=== PATIENT | female | born 1950 ===

== ENCOUNTER 2021-04-15 06:13 | Inpatient (IN) ==
--- NOTE | 2021-03-06 14:13 | PAT Medication Instructions ---
Medication Instructions Date of Service March 06, 2021 Home Medications Probiotic 10,000 mmu cells PO QAM calcium carbonate-vitamin D3 [Calcium 600 + D(3)] 1 tab PO QAM cetirizine 10 mg PO QAM garlic 1,000 mg PO QAM hydrochlorothiazide 25 mg PO DAILY PRN levothyroxine [Synthroid] 75 mcg PO QAM multivitamin 1 tab PO QAM aspirin [Aspir-81] 81 mg PO 4XWK Continue as directed aspirin [Aspir-81] 81 mg PO 4XWK (OK to take even on day of surgery unless otherwise instructed by surgeon) STOP taking 2 weeks before surgery If surgery is within 2 weeks, stop taking as soon as possible. garlic 1,000 mg PO QAM DO NOT take the morning of surgery Probiotic 10,000 mmu cells PO QAM calcium carbonate-vitamin D3 [Calcium 600 + D(3)] 1 tab PO QAM cetirizine 10 mg PO QAM hydrochlorothiazide 25 mg PO DAILY PRN multivitamin 1 tab PO QAM Take morning of surgery With a small sip of water, OTHERWISE NOTHING TO EAT OR DRINK AFTER MIDNIGHT: levothyroxine [Synthroid] 75 mcg PO QAM Take evening before surgery hydrochlorothiazide 25 mg PO DAILY PRN (if needed) Other Notes If you have any questions please call us at [phone] or [phone] or [phone] or [phone]
--- NOTE | 2021-03-11 13:57 | Anesthesiology Consultation ---
Date of Service March 11, 2021 Assessment & Plan (1) Encounter for pre-operative examination: COVID Status: As of 03/11 assessment, patient denies travel to endemic area, known exposure/sick contacts, or symptoms of COVID19. Patient instructed that they and their household members must follow strict social distancing guidelines, wear a mask in public and avoid travel/events/gatherings for 14 days prior to surgery. Preoperative COVID19 testing to be completed prior to surgery per surgeon's arrangements. Patient made aware to self-isolate as much as possible between COVID testing and surgery. Pt is fully vaccinated. Chart Review Chart Review: Acceptable Risk for Surgery (pending pcp clearance) and Patient seen in Pre Admission Testing Teaching & Discussion Instructed NPO after midnight before surgery, except medications with 15 cc of water. Medication instructions provided according to the PAT guidelines. History Surgery Operation Date: 04/15/21 10:15 Proposed Procedures p Left Total Knee Arthroplasty(Left) - Jw Westbrook DO Height/Weight Height: 5 ft 3 in Weight: 89.3 kg Allergies Allergy/AdvReac Type Severity Reaction Status Date / Time No Known Allergies Allergy Unverified 03/11/21 13:51 Medications Home Medications Medication Instructions Recorded Confirmed Last Taken Probiotic 10,000 mmu cells PO QAM 11/25/20 02/27/21 01/07/21 09:00 calcium carbonate-vitamin D3 1 tab PO QAM 11/25/20 02/27/21 01/07/21 09:00 [Calcium 600 + D(3)] cetirizine 10 mg PO QAM 11/25/20 02/27/21 01/07/21 09:00 garlic 1,000 mg PO QAM 11/25/20 02/27/21 12/23/20 hydrochlorothiazide 25 mg PO DAILY PRN 11/25/20 02/27/21 01/07/21 09:00 levothyroxine [Synthroid] 75 mcg PO QAM 11/25/20 02/27/21 01/08/21 02:15 multivitamin 1 tab PO QAM 11/25/20 02/27/21 01/01/21 aspirin [Aspir-81] 81 mg PO 4XWK 02/27/21 02/27/21 Unknown Past Medical History Medical History History of hepatitis B Hypertension HCTZ PRN (felt stress related) Hypothyroidism Obesity Osteoarthritis Exercise / Class Metabolic Activity II 4-5 Yardwork/Stairs/Walk up hill Past Family History Family History Other No family history of adverse response to anesthesia Past Surgical History Surgical History History of appendectomy History of arthroscopy R/L knees History of carpal tunnel release R/L History of cholecystectomy History of colonoscopy History of dilatation and curettage History of tonsillectomy and adenoidectomy History of total knee replacement RT Hx of blepharoplasty R/L Hx of hand surgery ganglion cyst left hand/5th digit right hand S/P JENN-BSO Past Anesthesia History No Hx of Anesthesia Complications and No Family Hx of Anesthesia Complications History of PONV No Hx of PONV and No Hx of Motion Sickness Social History Smoking Status: Never smoker Do You Dip or Chew Tobacco: No Hx Alcohol Use: Yes Alcohol type: wine and hard liquor alcohol intake frequency: a few times a month Hx Substance Use: No substance use type: does not use Review of Systems Pt denies any recent chest pain, shortness of breath, palpitations, cough, fever, URI, or uncontrolled acid reflux. Physical Exam Vital Signs BP: 128/80 P: 73bpm SPO2: 99% RA T: 98.0 F R: 16 ENMT Mouth: no dental restorations, no chipped teeth and no loose teeth Thyromental Distance: > or= 3.5 Finger Breadths Mallampati Class: II Neck normal visual inspection; neck extension not limited Respiratory normal respiratory effort, lungs clear to auscultation Cardiovascular RRR, no murmur, no edema Testing Laboratory Results 03/11/21 13:33 03/11/21 13:33 PT 9.8 Seconds (9.0-12.0) 03/11/21 13:33 INR 1.0 (0.9-1.1) 03/11/21 13:33 APTT 26.3 Seconds (21.0-31.0) 03/11/21 13:33 Hemoglobin A1c 5.3 % (4.5-5.6) 03/11/21 13:33 Urine Color Yellow 03/11/21 13:33 Urine Appearance Clear (Clear) 03/11/21 13:33 Urine pH 7.0 (4.5-7.5) 03/11/21 13:33 Ur Specific [place] 1.010 (1.000-1.030) 03/11/21 13:33 Urine Protein Negative (Negative) 03/11/21 13:33 Urine Glucose (UA) Negative (Negative) 03/11/21 13:33 Urine Ketones Negative (Negative) 03/11/21 13:33 Urine Nitrite Negative (Negative) 03/11/21 13:33 Ur Leukocyte Esterase Negative (Negative) 03/11/21 13:33 Blood Type O Positive 03/11/21 13:32 Antibody Screen NEGATIVE 03/11/21 13:32 Electrocardiogram Date: 12/13/20 Findings: + NSR @ (69bpm) Chest X-Ray Date: 12/13/20 Findings: + NAD
[2021-03-11 14:55] LABS: Basophils # (auto) 0.05 K/uL (0-0.2); Basophils % (auto) 0.8 %; Eosinophils # (auto) 0.12 K/uL (0-0.5); Eosinophils % (auto) 1.8 %; Hematocrit (blood only) 36.6 % (37-47); Hemoglobin 12.3 g/dL (12.0-16.0); Immature Granulocytes # (auto) 0.01 K/uL (0.00-0.02); Immature Granulocytes % (auto) 0.2 %; Lymphocytes # (auto) 2.92 K/uL (1.2-3.4); Lymphocytes % (auto) 44.6 %; Mean Corpuscular Hemoglobin 29.6 pg (25-34); Mean Corpuscular Hgb Conc 33.6 g/dL (32-36); Mean Platelet Volume 9.8 fL (7.4-10.4); Monocytes # (auto) 0.43 K/uL (0.11-0.59); Monocytes % (auto) 6.6 %; Neutrophils # (auto) 3.02 K/uL (1.4-6.5); Platelet Count 282 K/uL (130-400); RDW Coefficient of Variation 13.5 % (11.5-14.5); RDW Standard Deviation 43.6 fL (36.4-46.3); Red Blood Count 4.16 M/uL (4.2-5.4); White Blood Count 6.55 K/uL (4.8-10.8)
[2021-03-11 14:56] LABS: Appearance Urine Clear (Clear); Bilirubin Urine Negative (Negative); Blood Urine Negative (Negative); Color Urine Yellow; Glucose Urine UA Negative (Negative); Ketones Urine Negative (Negative); Leukocyte Esterase Urine Negative (Negative); Nitrite Urine Negative (Negative); Protein Urine Negative (Negative); Urobilinogen Urine Negative (Negative)
[2021-03-11 14:58] LABS: Estimated Average Glucose 105 mg/dl; Hemoglobin A1C 5.3 % (4.5-5.6)
[2021-03-11 15:08] LABS: Partial Thromboplastin Time 26.3 Seconds (21.0-31.0); Prothrombin Time 9.8 Seconds (9.0-12.0)
[2021-03-11 16:48] LABS: Albumin Level 3.6 gm/dl (3.4-5.0); Calcium 10.5 mg/dl (8.5-10.1); Creatinine Clr Calc Pharmacy 70.1 ml/min; Est GFR (African American) 88.6; Est GFR (Non-African American) 76.5; Potassium 3.6 mmol/L (3.5-5.1)
--- NOTE | 2021-03-21 08:59 | History & Physical Report ---
Date of Service March 21, 2021 date of surgery: 04/15/21 Procedure: Left Total Knee Arthroplasty Assessment & Plan (1) Arthritis of knee, left: Further care discussed with patient and at this point in time has failed conservative measures and would like to proceed with a Left total knee repl acement. Plan on discharge will be home with home health physical therapy. DVT prophalaxis with TEDs, SCDs and will also place on aspirin 81 mg p.o. b.i.d. for a month postop. Patient will have follow up appointment in our office two weeks post op for staple/suture removal and re-evaluation. Patient otherwise has no other questions or concerns. The risks and benefits have been discussed including, but not limited to, risk of infection, nerve injury, stiffness, loss of motion, failure to improve, etc. Reasonable outcomes and options of treatment were discussed. An explanation of appropriate alternatives to the procedure that may be advantageous were discussed and their risks and benefits, as well as the risks and benefits of not proceeding with treatment. I offered to answer any additional inquiries concerning the treatment involved. All the patient's questions were answered. The patient is agreeable, understanding of the treatment plan and alternatives, and wishes to proceed with the treatment plan. History of Present Illness Chief Complaint: left knee pain Primary Care Provider: Jamal Burns MD Chio is a 70 year old female who complains of Left knee pain, presents for pre-op evaluation prior to a left total knee replacement by dr Westbrook at [facility]. She has complaints of pain, decreased range of motion and stiffness in her left knee. she states that the symptoms have been chronic and non-traumatic. Currently the patient states that the symptoms are moderate-severe. The pain is described as aching, sharp and throbbing and rated as 4/10. The symptoms are aggravated by ascending stairs, daily activities, first steps while awake walking. Prior NSAIDs include IBU and Aleve. she has been treated with previous visco injections as well as cortisone without relief. she recently underwent right TKA and has recovered well. Allergies Allergy/AdvReac Type Severity Reaction Status Date / Time No Known Allergies Allergy Unverified 03/11/21 13:51 Home Medications Medication Instructions Recorded Confirmed Type Probiotic 10,000 mmu cells PO QAM 11/25/20 02/27/21 History calcium carbonate-vitamin D3 1 tab PO QAM 11/25/20 02/27/21 History [Calcium 600 + D(3)] cetirizine 10 mg PO QAM 11/25/20 02/27/21 History garlic 1,000 mg PO QAM 11/25/20 02/27/21 History hydrochlorothiazide 25 mg PO DAILY PRN 11/25/20 02/27/21 History levothyroxine [Synthroid] 75 mcg PO QAM 11/25/20 02/27/21 History multivitamin 1 tab PO QAM 11/25/20 02/27/21 History aspirin [Aspir-81] 81 mg PO 4XWK 02/27/21 02/27/21 History Past Med/Surg History Medical History History of hepatitis B Hypertension HCTZ PRN (felt stress related) Hypothyroidism Obesity Osteoarthritis Surgical History History of appendectomy History of arthroscopy R/L knees History of carpal tunnel release R/L History of cholecystectomy History of colonoscopy History of dilatation and curettage History of tonsillectomy and adenoidectomy History of total knee replacement RT: Right Total Knee Arthroplasty(Right) utilizing [employer] Nephew journey 2 patient matched total knee arthroplasty size 4 femur 3 tibia 12 polyethylene 32 oval patella Hx of blepharoplasty R/L Hx of hand surgery ganglion cyst left hand/5th digit right hand S/P JENN-BSO Family History Other No family history of adverse response to anesthesia Social History Smoking Status: Never smoker Second Hand Exposure: Yes ( A CHILD); Do You Dip or Chew Tobacco: No; Hx Alcohol Use: Yes Alcohol type: wine and hard liquor Hx Substance Use: No Preferred Language: Salvadorean Communication Ability: Effective Script Reader Required: No Beliefs That Will Affect Care: None Current Living Situation: Alone Feels Safe at Home: Yes Safety Concerns: Feels Safe At This Time Assistive Devices: None Review of Systems Review of Systems: All systems reviewed & are unremarkable except as noted in HPI & below Constitutional: no fever, no chills and no sweats Respiratory: no cough and no dyspnea Cardiovascular: no chest pain, no dyspnea and no orthopnea Gastrointestinal: no abdominal pain, no nausea and no vomiting Musculoskeletal: as per Subjective / HPI Physical Exam Physical Exam: HT: 5ft 3in WT: 89.3kg Constitutional: WD/WN, vitals as above no acute distress Respiratory: normal respiratory effort, lungs clear to auscultation no respiratory distress, no labored breathing and does not use accessory muscles Cardiovascular: RRR, no murmur, no edema Gastrointestinal (Abdomen): normal bowel sounds, soft, nontender, no hepatospl enomegaly Musculoskeletal: Knee: + knee abnormal to inspection (LEFT KNEE), + effusion (+1 effusion), + limited ROM of knee (ROM 0/3/110), + knee ROM with crepitation, + joint line tenderness (medial joint line) and + Gill's sign positive; no deformity, no skin erythema, no ecchymosis, no valgus laxity, no varus laxity, anterior drawer test negative, Basil's sign negative and pivot shift test negative Results & Data Results & Data ([facility]) Laboratory Results Laboratory Results WBC 6.55 K/uL (4.8-10.8) 03/11/21 13:33 RBC 4.16 M/uL (4.2-5.4) L 03/11/21 13:33 Hgb 12.3 g/dL (12.0-16.0) 03/11/21 13:33 Hct 36.6 % (37-47) L 03/11/21 13:33 MCV 88.0 fL (80-100) 03/11/21 13:33 MCH 29.6 pg (25-34) 03/11/21 13:33 MCHC 33.6 g/dL (32-36) 03/11/21 13:33 RDW Std Deviation 43.6 fL (36.4-46.3) 03/11/21 13:33 RDW Coeff of Antonia 13.5 % (11.5-14.5) 03/11/21 13:33 Plt Count 282 K/uL (130-400) 03/11/21 13:33 MPV 9.8 fL (7.4-10.4) 03/11/21 13:33 Immature Gran % (Auto) 0.2 % 03/11/21 13:33 Neut % (Auto) 46.0 % 03/11/21 13:33 Lymph % (Auto) 44.6 % 03/11/21 13:33 Grady % (Auto) 6.6 % 03/11/21 13:33 Eos % (Auto) 1.8 % 03/11/21 13:33 Baso % (Auto) 0.8 % 03/11/21 13:33 Neut # (Auto) 3.02 K/uL (1.4-6.5) 03/11/21 13:33 Lymph # (Auto) 2.92 K/uL (1.2-3.4) 03/11/21 13:33 Grady # (Auto) 0.43 K/uL (0.11-0.59) 03/11/21 13:33 Eos # (Auto) 0.12 K/uL (0-0.5) 03/11/21 13:33 Baso # (Auto) 0.05 K/uL (0-0.2) 03/11/21 13:33 Immature Gran # (Auto) 0.01 K/uL (0.00-0.02) 03/11/21 13:33 PT 9.8 Seconds (9.0-12.0) 03/11/21 13:33 INR 1.0 (0.9-1.1) 03/11/21 13:33 APTT 26.3 Seconds (21.0-31.0) 03/11/21 13:33 PTT Ratio 1.0 03/11/21 13:33 Sodium 138 mmol/L (136-145) 03/11/21 13:33 Potassium 3.6 mmol/L (3.5-5.1) 03/11/21 13:33 Chloride 104 mmol/L (98-107) 03/11/21 13:33 Carbon Dioxide 29 mmol/L (21-32) 03/11/21 13:33 Anion Gap 5.0 (3-11) 03/11/21 13:33 BUN 17 mg/dl (7-18) 03/11/21 13:33 Creatinine 0.78 mg/dl (0.6-1.2) 03/11/21 13:33 Est Cr Clr Drug Dosing 70.1 ml/min 03/11/21 13:33 Est GFR ( Amer) 88.6 03/11/21 13:33 Est GFR (Non-Af Amer) 76.5 03/11/21 13:33 BUN/Creatinine Ratio 21.0 (10-20) H 03/11/21 13:33 Glucose 80 mg/dl (70-99) 03/11/21 13:33 Estimat Average Glucose 105 mg/dl 03/11/21 13:33 Hemoglobin A1c 5.3 % (4.5-5.6) 03/11/21 13:33 Calcium 10.5 mg/dl (8.5-10.1) H 03/11/21 13:33 Albumin 3.6 gm/dl (3.4-5.0) 03/11/21 13:33 Urine Color Yellow 03/11/21 13:33 Urine Appearance Clear (Clear) 03/11/21 13:33 Urine pH 7.0 (4.5-7.5) 03/11/21 13:33 Ur Specific [place] 1.010 (1.000-1.030) 03/11/21 13:33 Urine Protein Negative (Negative) 03/11/21 13:33 Urine Glucose (UA) Negative (Negative) 03/11/21 13:33 Urine Ketones Negative (Negative) 03/11/21 13:33 Urine Blood Negative (Negative) 03/11/21 13:33 Urine Nitrite Negative (Negative) 03/11/21 13:33 Urine Bilirubin Negative (Negative) 03/11/21 13:33 Urine Urobilinogen Negative (Negative) 03/11/21 13:33 Ur Leukocyte Esterase Negative (Negative) 03/11/21 13:33 Blood Type O Positive 03/11/21 13:32 Antibody Screen NEGATIVE 03/11/21 13:32 Diagnostic Findings Left Knee X-ray: left knee series confirm advanced degenerative changes to the left knee, greatest medial compartments and patellofemoral joint, showing joint space narrowing, osteophyte formation and subchondral sclerosis. no acute bony pathology noted.
[~2021-04-15 06:13] MED LIST: ACETAMINOPHEN 500 MG TAB PO SCH; CeleBREX 200 MG CAP PO SCH; FAMOTIDINE 20 MG TAB PO SCH; GABAPENTIN 300 MG CAP PO SCH; LR 500ML BOLUS, THEN 15ML/HR IV SCH; METOCLOPRAMIDE HCL 10 MG TABLET PO SCH; ROPIVACAINE 0.5% HCL/PF 150 MG, BUPIVACAINE 0.75% MPF 20 ML, EPINEPHrine 30MG/30ML (OR ... INSTIL SCH; TRANEXAMIC ACID 1,000 MG **IV Intra-op IV SCH; TRANEXAMIC ACID 1,000 MG **IV Pre-op IV SCH; ceFAZolin 2000MG 2,000 MG/15 ML SYR IV SCH; dexAMETHasone 4 MG TAB PO SCH
[2021-04-15] MEDS ORDERED: BUPIVACAINE 0.5 % 5 MG/1 ML PF 10ML VIAL ONE (06:39)
[2021-04-15] MEDS ORDERED: BUPIVACAINE 0.25% 30 ML VIAL ONE (06:39)
[2021-04-15] MEDS ORDERED: MIDAZOLAM HCL 1 MG/ML 2ML VIAL ONE ×2 (08:19→10:59)
[2021-04-15] MEDS ORDERED: PROPOFOL IV EMULSION 10 MG/ML 20 ML VIAL IV ONE ×2 (08:19→11:07)
[2021-04-15] MEDS ORDERED: LIDOCAINE 2% 2 ML VIAL/AMP(20MG/ML) INFIL ONE (08:19)
--- NOTE | 2021-04-15 08:42 | History & Physical Bridge Note ---
Date of Service April 15, 2021 History & Physical Bridge Note I have examined the patient, reviewed the History & Physical and in the interval since the performance of the History & Physical I have noted the following changes of clinical significance: no changes noted
[2021-04-15] MEDS ORDERED: ORTHO JOINT ANESTHETIC ONE (09:12)
[2021-04-15] MEDS ORDERED: ATROPINE SULFATE 0.1 MG/ML 10ML SYR IV PRN (10:19)
[2021-04-15] MEDS ORDERED: ONDANSETRON INJ 2 MG/ML 2 ML VIAL IV PRN ×2 (10:19→13:25)
[2021-04-15] MEDS ORDERED: fentaNYL citrate 100 MCG/2 ML VIAL IV PRN (10:19)
[2021-04-15] MEDS ORDERED: ePHEDrine sulfate 50 MG/ML AMP IV PRN (10:19)
--- NOTE | 2021-04-15 11:18 | Operative Report ---
Post Operative Report Pre & Post Diagnosis Operation Date: 04/15/21 09:10 Pre-Op Diagnosis: Unilateral Primary Osteoarthritis, Left Knee Post-Op Diagnosis: Unilateral Primary Osteoarthritis, Left Knee I identified the patient and participated in the time-out.: Yes Procedure Operation Date: 04/15/21 09:10 Actual Procedures p Left Total Knee Arthroplasty(Left) utilizing Carbajal & [employer]phg[employer] journey 2 patient matched total knee arthroplasty size 4 femur 3 tibia 15 polyethylene 29 oval patella- Jw Westbrook DO Surgeon Jw Westbrook DO [employer] [place] Estimated Blood Loss 10 Findings Consistent with Post-Op Diagnosis Patient presents with severe end-stage DJD left knee with varus alignment subchondral sclerosis marginal osteophytes eburnated [id number] moderate to large effusion Specimens Bone and cartilage Drains Medium bore Hemovac Anesthesia Type MAC Epidural Regional Complications none Disposition Accompanied Patient To Recovery: No Disposition: Recovery Room Indications Patient presents with severe end-stage DJD failed attempted conservative management clinic physical therapy anti-inflammatories relative rest activity modification corticosteroid injections viscosupplementation above intraoperative findings were noted. Description of Procedure After proper prepping and draping of the left lower extremity anterior midline incision was made over the region of the extensor extensor mechanism after meticulous hemostasis was obtained and maintained in subcutaneous tissues a medial parapatellar incision was made The patella was subluxed lateralward the medial lateral gutter were cleaned from any hypertrophic synovitis and scar tissue of the distal femoral block was placed and the distal femoral osteotomy cut was made subsequently the chamfers anterior and posterior osteotomy cuts were made utilizing the 4-in-1 block the tibia was subsequently subluxed anteriorward medial and ateral meniscal remnants were excised in their entirety remnants of the anterior and posterior cruciate ligaments were excised in their entirety excellent exposure of the proximal tibia was obtained the tibial osteotomy guide was placed on the proximal tibial osteotomy cut was made once again the knee was irrigated with copious amounts of sterile saline solution the patella was subsequently everted lateralward thickened scar tissue around the patella was removed the patella was subsequently cut utilizing a freehand technique and was drilled prepared for final preparation and placement of patella socially flexion-extension gaps were checked and the equal and symmetric trials were placed to the appropriate femoral and tibial trials with poly-spacer being placed for equal flexion and extension gaps and full range of motion including extension to 0 and flexion to 140 the trial components after having been taken to recovery range of motion was subsequently removed meticulous hemostasis was obtained and maintained subsequently a knee block injection of joint cocktail including ropivacaine 0.5% 150 mg. Bupivacaine 0.5% epinephrine 1-200,030 mL's toradol 30 mg dexamethasone 4 mg ketamine 10 mg clonidine 100 micrograms normal saline solution 30 mg was infiltrated into the soft tissues of the posterior knee medial lateral gutters and periosteal synovium special attention was paid to protect neurovascular structures at all times subsequently trial components having been removed the knee was irrigated with sterile saline solution. debris was removed the proximal tibia was subsequently prepared and was made ready for the placement of the tibial component tibial component was also cemented and tamped into position the femoral component was subsequently placed and cemented in the position the patellar component was subsequently cemented in position because hemostasis once again obtained and maintained wound having been thoroughly irrigated with debridement and debridement lavage was performed as well as a medial parapatellar incision closed with #1 Vicryl in interrupted fashion subcutaneous was closed with #2 Vicryl skin was closed with skin clips. PA-C was necessary for prepping and drapping as well as wound closure of deep fascia Sub cutaneous tissue and skin and was necessary for the case. A sterile compressive dressing was placed patient was taken to recovery in stable condition of report dictated by Pietro I attest to the content of the Intraoperative Record and any orders documented therein. Any exceptions are noted below. I attest to the content of the Intraoperative Record and any orders documented therein. Any exceptions are noted below.
--- NOTE | 2021-04-15 12:29 | XRay Report ---
XR knee LT 1 or 2V routine CLINICAL HISTORY: Surgical Post Op COMPARISON: None FINDINGS: Alignment of the total left knee arthroplasty is anatomic. There is no periprosthetic frac ture. There are no unexpected radiopaque foreign bodies. There are surgical drains. IMPRESSION: Expected findings following total left knee arthroplasty. ACT 112: Negative or not required by law. Electronically signed by: Wei Oliveira M.D. 04/15/2021 12:28 PM
--- NOTE | 2021-04-15 12:53 | Anesthesiology Progress Note ---
Date of Service April 15, 2021 Anesthesia Post Procedure Vital Signs Vital Signs: Temp Pulse Pulse Resp BP Pulse Ox 04/15/21 12:40 36.2 C L 68 20 119/67 97 04/15/21 12:30 68 20 119/67 97 04/15/21 12:20 67 19 120/68 100 04/15/21 12:09 36.3 C L 77 20 122/63 98 04/15/21 12:00 36.3 C L 68 17 125/64 98 04/15/21 07:30 36.9 C 76 18 159/79 H 98 Transfer of Care Handoff Completed per policy Notes Mental Status: alert / awake / arousable and participated in evaluation Nausea / Vomiting: adequately controlled Pain: adequately controlled Airway Patency, RR, SpO2: stable & adequate BP & HR: stable & adequate Hydration State: stable & adequate Neuraxial Anesthesia: was administered and sensory block is resolving Anesthetic Complications: no major complications apparent and Pt Satisfied with anesthetic care
[2021-04-15] MEDS ORDERED: bisacodyL 10 MG SUPP PR PRN (13:25)
[2021-04-15] MEDS ORDERED: MAGNESIUM HYDROXIDE SUSP 30 ML UDC PO PRN (13:25)
[2021-04-15] MEDS ORDERED: NALOXONE HCL 0.4 MG/1 ML VIAL/CARP IV PRN (13:25)
[2021-04-15] MEDS ORDERED: KETOROLAC 30 MG/ML VIAL IV SCH (13:25)
[2021-04-15] MEDS ORDERED: HYDROmorphone INJ 1 MG/ML SYRINGE IV PRN (13:25)
[2021-04-15] MEDS ORDERED: METOCLOPRAMIDE HCL INJ 5 MG/ML 2 ML VIAL IV PRN (13:25)
[2021-04-15] MEDS ORDERED: diphenhydrAMINE Capsule 25 MG CAP PO PRN (13:25)
[2021-04-15] MEDS ORDERED: hydroCHLOROthiazide 25 MG TAB PO PRN (13:25)
[2021-04-15] MEDS ORDERED: oxyCODONE HCL IR 5 MG TAB (IMMEDIATE RELEASE) PO PRN (13:25)
[2021-04-15] MEDS: SODIUM CHLORIDE 0.9% 1000ML 1,000 ML IV SCH (14:55)
[2021-04-15] MEDS: ACETAMINOPHEN 500 MG TAB PO SCH ×2 (15:29→22:30)
[2021-04-15] MEDS: KETOROLAC TROMETHAMINE 15 MG/ML VIAL IV SCH ×2 (15:29→20:49)
[2021-04-15] MEDS: ceFAZolin 2000MG 2,000 MG/15 ML SYR IV SCH (17:52)
[2021-04-15] MEDS: DOCUSATE SODIUM 100 MG CAP PO SCH (20:49)
[2021-04-15] MEDS: ASPIRIN 81 MG ECTAB PO SCH (20:49)
[2021-04-15] MEDS ORDERED: SENNA 8.6 MG TAB PO SCH (21:00)
[2021-04-16] MEDS: SODIUM CHLORIDE 0.9% 1000ML 1,000 ML IV SCH (01:07)
[2021-04-16] MEDS: ceFAZolin 2000MG 2,000 MG/15 ML SYR IV SCH (01:24)
[2021-04-16] MEDS: KETOROLAC TROMETHAMINE 15 MG/ML VIAL IV SCH ×2 (01:24→07:51)
[2021-04-16] MEDS: ACETAMINOPHEN 500 MG TAB PO SCH (05:47)
[2021-04-16 06:25] LABS: Hematocrit (blood only) 34.2 % (37-47); Hemoglobin 11.7 g/dL (12.0-16.0); Mean Corpuscular Hemoglobin 29.6 pg (25-34); Mean Corpuscular Hgb Conc 34.2 g/dL (32-36); Mean Corpuscular Volume 86.6 fL (80-100); Mean Platelet Volume 9.2 fL (7.4-10.4); Platelet Count 229 K/uL (130-400); RDW Coefficient of Variation 13.7 % (11.5-14.5); RDW Standard Deviation 43.8 fL (36.4-46.3); Red Blood Count 3.95 M/uL (4.2-5.4); White Blood Count 14.44 K/uL (4.8-10.8)
[2021-04-16] MEDS ORDERED: LEVOTHYROXINE SODIUM 75 MCG TABLET PO SCH (06:30)
[2021-04-16 06:54] LABS: BUN Creatinine Ratio 18.3 (10-20); Calcium 8.9 mg/dl (8.5-10.1); Creatinine Clr Calc Pharmacy 61.2 ml/min; Est GFR (African American) 73.6 ml/min; Est GFR (Non-African American) 63.5 ml/min
[2021-04-16] MEDS: DOCUSATE SODIUM 100 MG CAP PO SCH (07:53)
[2021-04-16] MEDS: ASPIRIN 81 MG ECTAB PO SCH (07:54)
--- NOTE | 2021-04-16 08:56 | Orthopedic Progress Note ---
Date of Service April 16, 2021 Assessment & Plan (1) Arthritis of knee, left: Postop day 1 status post left total knee arthroplasty. PT/OT protocols. Weightbearing as tolerated. DVT prophylaxis-aspirin p.o. twice daily, Milagro, ALMA escamilla. Pain management as written. Mild leukocytosis-likely secondary to surgical stress and or preoperative steroids. DC planning-patient is planning for home health services upon discharge. Admission and Anticipated Discharge Date Admission Date: April 15, 2021 Subjective Postop day 1 Patient is awake and alert this morning sitting up in bed. She states that she has a little bit of soreness around her upper thigh where her tourniquet was placed but otherwise her pain is controlled in the knee. Denies shortness of breath, chest pain, lightheadedness. Patient states she is hoping to go home today. Physical Exam Physical Exam: Dressings are clean, dry, and intact. Calves are soft nontender. She does have some general soreness at the back of the knee consistent with surgery and some soreness over the lateral aspect of the lower extremity. Neurovascular intact. Toes are mobile. She has good dorsiflexion plantarflexion of the left foot. Minimal drainage from her Hemovac. Results & Data ([facility]) Vital Signs (Past 12 Hours) Vital Signs Temp Pulse Resp BP BP Pulse Ox 04/16/21 07:26 37.1 C 68 16 120/70 100 04/16/21 03:00 37.1 C 66 20 111/65 96 04/15/21 23:00 37.1 C 74 20 112/68 97 Laboratory Results Laboratory Results WBC 14.44 K/uL (4.8-10.8) H 04/16/21 06:15 RBC 3.95 M/uL (4.2-5.4) L 04/16/21 06:15 Hgb 11.7 g/dL (12.0-16.0) L 04/16/21 06:15 Hct 34.2 % (37-47) L 04/16/21 06:15 MCV 86.6 fL (80-100) 04/16/21 06:15 MCH 29.6 pg (25-34) 04/16/21 06:15 MCHC 34.2 g/dL (32-36) 04/16/21 06:15 RDW Std Deviation 43.8 fL (36.4-46.3) 04/16/21 06:15 RDW Coeff of Antonia 13.7 % (11.5-14.5) 04/16/21 06:15 Plt Count 229 K/uL (130-400) 04/16/21 06:15 MPV 9.2 fL (7.4-10.4) 04/16/21 06:15 Immature Gran % (Auto) 0.2 % 03/11/21 13:33 Neut % (Auto) 46.0 % 03/11/21 13:33 Lymph % (Auto) 44.6 % 03/11/21 13:33 Owen % (Auto) 6.6 % 03/11/21 13:33 Eos % (Auto) 1.8 % 03/11/21 13:33 Baso % (Auto) 0.8 % 03/11/21 13:33 Neut # (Auto) 3.02 K/uL (1.4-6.5) 03/11/21 13:33 Lymph # (Auto) 2.92 K/uL (1.2-3.4) 03/11/21 13:33 Owen # (Auto) 0.43 K/uL (0.11-0.59) 03/11/21 13:33 Eos # (Auto) 0.12 K/uL (0-0.5) 03/11/21 13:33 Baso # (Auto) 0.05 K/uL (0-0.2) 03/11/21 13:33 Immature Gran # (Auto) 0.01 K/uL (0.00-0.02) 03/11/21 13:33 PT 9.8 Seconds (9.0-12.0) 03/11/21 13:33 INR 1.0 (0.9-1.1) 03/11/21 13:33 APTT 26.3 Seconds (21.0-31.0) 03/11/21 13:33 PTT Ratio 1.0 03/11/21 13:33 Sodium 141 mmol/L (136-145) 04/16/21 06:15 Potassium 4.0 mmol/L (3.5-5.1) 04/16/21 06:15 Chloride 111 mmol/L (98-107) H 04/16/21 06:15 Carbon Dioxide 25 mmol/L (21-32) 04/16/21 06:15 Anion Gap 5.0 (3-11) 04/16/21 06:15 BUN 17 mg/dl (7-18) 04/16/21 06:15 Creatinine 0.91 mg/dl (0.6-1.2) 04/16/21 06:15 Est Cr Clr Drug Dosing 61.2 ml/min 04/16/21 06:15 Est GFR ( Amer) 73.6 ml/min 04/16/21 06:15 Est GFR (Non-Af Amer) 63.5 ml/min 04/16/21 06:15 BUN/Creatinine Ratio 18.3 (10-20) 04/16/21 06:15 Glucose 111 mg/dl (70-99) H 04/16/21 06:15 Estimat Average Glucose 105 mg/dl 03/11/21 13:33 Hemoglobin A1c 5.3 % (4.5-5.6) 03/11/21 13:33 Calcium 8.9 mg/dl (8.5-10.1) 04/16/21 06:15 Albumin 3.6 gm/dl (3.4-5.0) 03/11/21 13:33 Urine Color Yellow 03/11/21 13:33 Urine Appearance Clear (Clear) 03/11/21 13:33 Urine pH 7.0 (4.5-7.5) 03/11/21 13:33 Ur Specific Romance 1.010 (1.000-1.030) 03/11/21 13:33 Urine Protein Negative (Negative) 03/11/21 13:33 Urine Glucose (UA) Negative (Negative) 03/11/21 13:33 Urine Ketones Negative (Negative) 03/11/21 13:33 Urine Blood Negative (Negative) 03/11/21 13:33 Urine Nitrite Negative (Negative) 03/11/21 13:33 Urine Bilirubin Negative (Negative) 03/11/21 13:33 Urine Urobilinogen Negative (Negative) 03/11/21 13:33 Ur Leukocyte Esterase Negative (Negative) 03/11/21 13:33 COVID-19 Eval Order Covid19 IDNow [facility] 04/15/21 Unknown SARS-CoV-2, RNA, NAAT NEGATIVE (NEGATIVE) 04/15/21 Unknown Blood Type O Positive 03/11/21 13:32 Antibody Screen NEGATIVE 03/11/21 13:32 Impressions Knee X-Ray 04/15/21 12:04 XR knee LT 1 or 2V routine CLINICAL HISTORY: Surgical Post Op COMPARISON: None FINDINGS: Alignment of the total left knee arthroplasty is anatomic. There is no periprosthetic fracture. There are no unexpected radiopaque foreign bodies. There are surgical drains. IMPRESSION: Expected findings following total left knee arthroplasty. ACT 112: Negative or not required by law. Electronically signed by: Wei Oliveira M.D. 04/15/2021 12:28 PM
[2021-04-16] MEDS ORDERED: CALCIUM 600MG + VIT D 400 IU TAB PO SCH (09:00)
[2021-04-16] MEDS ORDERED: MULTIVITAMIN TAB PO SCH (09:00)
[2021-04-16] MEDS ORDERED: CETIRIZINE HCL 10 MG TABLET PO SCH (09:00)
--- NOTE | 2021-04-16 17:57 | Discharge Summary ---
Date of Service date of discharge: April 16, 2021 date of admission: 04-15-21 Admission HPI Per Admitting Provider Chio is a 70 year old female who complains of Left knee pain, presents for pre-op evaluation prior to a left total knee replacement by dr Westbrook at [facility]. She has complaints of pain, decreased range of motion and stiffness in her left knee. she states that the symptoms have been chronic and non-traumatic. Currently the patient states that the symptoms are moderate-severe. The pain is described as aching, sharp and throbbing and rated as 4/10. The symptoms are aggravated by ascending stairs, daily activities, first steps while awake walking. Prior NSAIDs include IBU and Aleve. she has been treated with previous visco injections as well as cortisone without relief. she recently underwent right TKA and has recovered well. Principal Diagnosis left knee arthritis Discharge Exam Constitutional WD/WN, vitals as above Musculoskeletal left knee: NVDI, calf SNT, negative tex sign. DP palpable, able to wiggle toes/ankle movement without difficulty. dressing clean dry and intact. expected post-operative bruising noted. Laboratory Results WBC 14.44 K/uL (4.8-10.8) H 04/16/21 06:15 RBC 3.95 M/uL (4.2-5.4) L 04/16/21 06:15 Hgb 11.7 g/dL (12.0-16.0) L 04/16/21 06:15 Hct 34.2 % (37-47) L 04/16/21 06:15 MCV 86.6 fL (80-100) 04/16/21 06:15 MCH 29.6 pg (25-34) 04/16/21 06:15 MCHC 34.2 g/dL (32-36) 04/16/21 06:15 RDW Std Deviation 43.8 fL (36.4-46.3) 04/16/21 06:15 RDW Coeff of Antonia 13.7 % (11.5-14.5) 04/16/21 06:15 Plt Count 229 K/uL (130-400) 04/16/21 06:15 MPV 9.2 fL (7.4-10.4) 04/16/21 06:15 Immature Gran % (Auto) 0.2 % 03/11/21 13:33 Neut % (Auto) 46.0 % 03/11/21 13:33 Lymph % (Auto) 44.6 % 03/11/21 13:33 [place] % (Auto) 6.6 % 03/11/21 13:33 Eos % (Auto) 1.8 % 03/11/21 13:33 Baso % (Auto) 0.8 % 03/11/21 13:33 Neut # (Auto) 3.02 K/uL (1.4-6.5) 03/11/21 13:33 Lymph # (Auto) 2.92 K/uL (1.2-3.4) 03/11/21 13:33 [place] # (Auto) 0.43 K/uL (0.11-0.59) 03/11/21 13:33 Eos # (Auto) 0.12 K/uL (0-0.5) 03/11/21 13:33 Baso # (Auto) 0.05 K/uL (0-0.2) 03/11/21 13:33 Immature Gran # (Auto) 0.01 K/uL (0.00-0.02) 03/11/21 13:33 PT 9.8 Seconds (9.0-12.0) 03/11/21 13:33 INR 1.0 (0.9-1.1) 03/11/21 13:33 APTT 26.3 Seconds (21.0-31.0) 03/11/21 13:33 PTT Ratio 1.0 03/11/21 13:33 Sodium 141 mmol/L (136-145) 04/16/21 06:15 Potassium 4.0 mmol/L (3.5-5.1) 04/16/21 06:15 Chloride 111 mmol/L (98-107) H 04/16/21 06:15 Carbon Dioxide 25 mmol/L (21-32) 04/16/21 06:15 Anion Gap 5.0 (3-11) 04/16/21 06:15 BUN 17 mg/dl (7-18) 04/16/21 06:15 Creatinine 0.91 mg/dl (0.6-1.2) 04/16/21 06:15 Est Cr Clr Drug Dosing 61.2 ml/min 04/16/21 06:15 Est GFR ( Amer) 73.6 ml/min 04/16/21 06:15 Est GFR (Non-Af Amer) 63.5 ml/min 04/16/21 06:15 BUN/Creatinine Ratio 18.3 (10-20) 04/16/21 06:15 Glucose 111 mg/dl (70-99) H 04/16/21 06:15 Estimat Average Glucose 105 mg/dl 03/11/21 13:33 Hemoglobin A1c 5.3 % (4.5-5.6) 03/11/21 13:33 Calcium 8.9 mg/dl (8.5-10.1) 04/16/21 06:15 Albumin 3.6 gm/dl (3.4-5.0) 03/11/21 13:33 Urine Color Yellow 03/11/21 13:33 Urine Appearance Clear (Clear) 03/11/21 13:33 Urine pH 7.0 (4.5-7.5) 03/11/21 13:33 Ur Specific [place] 1.010 (1.000-1.030) 03/11/21 13:33 Urine Protein Negative (Negative) 03/11/21 13:33 Urine Glucose (UA) Negative (Negative) 03/11/21 13:33 Urine Ketones Negative (Negative) 03/11/21 13:33 Urine Blood Negative (Negative) 03/11/21 13:33 Urine Nitrite Negative (Negative) 03/11/21 13:33 Urine Bilirubin Negative (Negative) 03/11/21 13:33 Urine Urobilinogen Negative (Negative) 03/11/21 13:33 Ur Leukocyte Esterase Negative (Negative) 03/11/21 13:33 COVID-19 Eval Order Covid19 IDNow Counts include 234 beds at the [facility] 04/15/21 Unknown SARS-CoV-2, RNA, NAAT NEGATIVE (NEGATIVE) 04/15/21 Unknown Blood Type O Positive 03/11/21 13:32 Antibody Screen NEGATIVE 03/11/21 13:32 Impressions Knee X-Ray 04/15/21 12:04 XR knee LT 1 or 2V routine CLINICAL HISTORY: Surgical Post Op COMPARISON: None FINDINGS: Alignment of the total left knee arthroplasty is anatomic. There is no periprosthetic fracture. There are no unexpected radiopaque foreign bodies. There are surgical drains. IMPRESSION: Expected findings following total left knee arthroplasty. ACT 112: Negative or not required by law. Electronically signed by: Wei Oliveira M.D. 04/15/2021 12:28 PM Discharge Data Allergies Allergy/AdvReac Type Severity Reaction Status Date / Time No Known Allergies Allergy Unverified 04/15/21 07:24 Procedures Performed Operation Date: 04/15/21 09:10 Actual Procedures p Left Total Knee Arthroplasty(Left) - Jw Westbrook DO Ordered Studies 04/15/21 05:00 US - OR guided needle placemen Routine Hospital Course (1) Arthritis of knee, left: Postop day 1 status post left total knee arthroplasty. PT/OT protocols. Weightbearing as tolerated. DVT prophylaxis-aspirin p.o. twice daily, SCDs, ALMA escamilla. Pain management as written. Mild leukocytosis-likely secondary to surgical stress and or preoperative steroids. DC planning-patient is planning for home health services upon discharge. Total Time Total Time Spent Total Time Spent (In Minutes): 20 Total Time Includes: Examination of the Patient, Discharge Planning and Medication Reconciliation Discharge Plan Discharge Items Patient Disposition: Home - Home Health Services Reason For Visit: Unilateral Primary Osteoarthritis, Left Knee Discharge Diagnosis: left total knee arthroplasty Activity: Per Instructions section Weightbearing: Left weightbearing Weightbearing Comment: WBAT with walker Non-emergency contact: Surgeon Call non-emergency contact if: you have any medication questions, your pain is not controlled, your temperature is above 101, your wound has increased redness, your wound has increased drainage and your wound pain has increased Follow-up/Referrals: Jamal Burns MD [Primary Care Provider] - 04/24/21 1:00 pm Diet: Regular Addtl Attending Provider Instructions: ACTIVITY RECOMMENDATIONS: SELF CARE INSTRUCTIONS AFTER TOTAL KNEE REPLACEMENT A. You may need to continue a physical therapy program after discharge from the hospital. There are several options available to you. Your doctor will assist you in selecting the best one for you. 1. An out-patient facility 2 to 3 times a week for therapy or home therapy. 2. Continue working on all exercises taught to you in the hospital. Your goals should be to increase bending of your knee to 90 degrees and beyond and to fully straighten your knee. B. You may progress at your own pace from walking with a walker or crutches to a cane; then to no assistive devices. C. Make walking a part of your daily routine. Be up as much as comfortable with rest periods throughout the day. Rest with leg elevation is very important. Use the ice wrap frequently for the first 3-4 weeks. D. There are no restrictions on activities. You may ride in a car, shop, participate in bender machine operator and all social activities. E. Wear the long elastic stockings (ALMA hose) 20 hours a day for 2 weeks after surgery. They can be removed several times a day for laundering and for a bath. F. You may shower, no tub baths until cleared by your doctor. SPECIAL CARE INSTRUCTIONS: VERY IMPORTANT TO READ AND REVIEW A. There are a few signs you need to watch for after you are home. Call [facility] if you notice any of the followin. Increased severe knee pain. Some pain is expected especially when you exercise. 2. Increased swelling in your leg or knee; pain or swelling of the calf muscle in either lower leg. 3. Any fluid drainage from the incision. 4. Shortness of breath or chest pain. B. Please call [facility] at if you have any concerns or questions about your operation or recovery. The doctor or his nurse will return your call promptly. C. You must take antibiotics before dental work, bladder, bowel or other surge ry. Your doctor will provide you with a permanent care to carry describing this precaution. IMPORTANT: * REMEMBER TO TAKE ASPIRIN, 81 MG, TWICE DAILY FOR 4 WEEKS UNLESS OTHERWISE DIRECTED. THIS IS YOUR BLOOD THINNER. * HIGH RISK PATIENTS MAY BE PRESCRIBED A STRONGER BLOOD THINNER. THIS WILL BE PROVIDED AT DISCHARGE. * CALL IF INCREASED PAIN, REDNESS, DRAINAGE OR FEVER GREATER THAT 101. * WEAR ALMA HOSE 20 HOURS PER DAY FOR 2 WEEKS. * DERMABOND Prineo- This is a mesh tape dressing that is covered with glue. It should remain in place until the incision is properly healed, usually 10-14 days. This dressing is designed to naturally slough off. You may trim the excess mesh tape as it peels off. Incision may be briefly wet in a shower. Dry immediately by blotting with a clean, dry towel. Do not bath or swim until instructed by your doctor. Do not scratch, rub, or pick at the dressing. Do not apply any topical ointments or lotions until dressing is completely removed and/or instructed by your doctor. There may be a small piece of suture material at one end of your incision. Do not pull or trim this. If it is bothersome or catching on clothing, you may cover it with a band-aid. IF INCISION IS LEAKING THROUGH DRESSING, CALL THE OFFICE . FOLLOW UP VISIT: If appointment is not already scheduled: Please call [facility] to make a follow-up appointment for 2 weeks after your surgery at . Stand-Alone Forms: My [facility], Smoking Cessation Medications and DC Order Prescriptions: New celecoxib [Celebrex] 200 mg Capsule 200 mg PO BID 14 Days Qty: 28 RF: 0 aspirin 81 mg Tablet,Delayed Release (Dr/Ec) 81 mg PO BID 30 Days Qty: 60 RF: 0 acetaminophen 500 mg Tablet 1,000 mg PO Q8H 14 Days Qty: 84 RF: 0 polyethylene glycol 3350 [Miralax] 17 gram powder in packet 17 g PO DAILY PRN (Reason: constipation) Qty: 5 RF: 0 cefadroxil 500 mg capsule 500 mg PO BID Qty: 28 RF: 1 oxycodone 5 mg Tablet 5 mg PO Q4H MDD 6 PRN (Reason: pain) Qty: 30 RF: 0 Continued multivitamin Tablet 1 tab PO QAM RF: 0 levothyroxine [Synthroid] 75 mcg Tablet 75 mcg PO QAM RF: 0 garlic 1,000 mg Capsule 1,000 mg PO QAM RF: 0 hydrochlorothiazide 25 mg Tablet 25 mg PO DAILY PRN (Reason: Hypertension) RF: 0 cetirizine 10 mg Tablet,Chewable 10 mg PO QAM RF: 0 calcium carbonate-vitamin D3 [Calcium 600 + D(3)] 600 mg(1,500mg) -400 unit Tablet 1 tab PO QAM RF: 0 Probiotic 10 billion cell Capsule 10,000 mmu cells PO QAM RF: 0 Discontinued aspirin [Aspir-81] 81 mg Tablet,Delayed Release (Dr/Ec) 81 mg PO 4XWK RF: 0 Discharge Orders: Discharge Order (Routine); Ordered 04/16/21 Ordered By: Berry Moses/Other Patient Handouts: DVT Post Op Prevention Admission Data Admit Date/Time: 04/15/21 12:04 Attending Provider: Jw Westbrook Admit Provider: Jw Westbrook Primary Care Provider: Jamal Burns Other Interventions: Discharge Summary Assessment (RN) Last Done: 04/16/21 09:50
[2021-04-16] MEDS ORDERED: CeleBREX 200 MG CAP PO SCH (21:00)
== END 2021-04-16 13:02 | disposition home health service (06) | DRG 470 ==
LOC: ASU 06:13 → 3W 06:13 → OBSVTOIN 12:04